=== PATIENT | female | born 1945 | race Caucasian/White ===

== ENCOUNTER 2017-12-18 12:50 | Emergency (ER) | payer MEDICARE ==
[~2017-12-18 12:50] MED LIST: IBUP-2353 PO; MULT-725 PO
== END 2017-12-18 16:01 | disposition home or self-care (01) ==
LOC: EDH 12:50
DX: N63.0 Unspecified lump in unspecified breast (principal); Z88.5 Allergy status to narcotic agent; Z90.710 Acquired absence of both cervix and uterus; Z98.890 Other specified postprocedural states; Z87.891 Personal history of nicotine dependence
CPT/HCPCS: 76641